=== PATIENT | female | born 1965 | race American Indian/Alaskan Native ===

== ENCOUNTER 2016-10-15 17:31 | Emergency (ER) | payer OTHER ==
--- NOTE | 2016-10-15 20:23 | Emergency Department Report ---
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 Patient states she went to dialysis Center on and was told hemoglobin count was low in the transfusion and was sent to go to the ER to be assessed. Patient states his last dialysis was Saturday and her next dialysis is tomorrow. Patient denies fever nausea vomiting chills, patient's of breath chest pain or any other problems. - ROS Review of Systems: As noted in HPI - Exam Vital Signs: Vital Signs 10/15/16 10/15/16 17:31 19:25 Temperature 98.9 F 98.3 F Pulse Rate 93 H 92 H Respiratory 16 18 Rate Blood Pressure 161/70 Blood Pressure 167/79 [Right] O2 Sat by Pulse 100 100 Oximetry Physical Exam: GENERAL: Alert and oriented x3, no apparent distress, Normal Gait, atraumatic. LUNGS: Symetrical with respiration, No wheezing, no rales or crackles, CTAB. HEART: S1, S2 present, regular rate and rhythm without murmur, no rubs, no gallops. ABDOMEN: No organomegaly was noted,Positive bowel sounds, soft, and non- distended. . Nontender to palpation on all Quadrants, NO CVA tenderness. MSE screening note: Focused history and physical exam performed. Due to findings the following was ordered: ED Medical Decision Making - Medical Decision Making Pulse rate 93 otherwise vital signs stable. Patient is alert and oriented 3 is in no respiratory distress. Patient to be seen by ED physician pending labs. ED Disposition for MSE Condition: Stable
[2016-10-15 21:43] LABS: Basophils % (Auto) 1.2 % (0.0-1.8); Hematocrit 21.7 % (30.3-42.9); Hemoglobin 7.3 gm/dl (10.1-14.3); Mean Corpuscular HGB Conc 34 % (30-34); Mean Corpuscular Hemoglobin 30 pg (28-32); Mean Corpuscular Volume 89 fl (79-97); Platelet Count 334 K/mm3 (140-440); Red Blood Count 2.43 M/mm3 (3.65-5.03); Red Cell Distribution Width 15.2 % (13.2-15.2); White Blood Count 9.3 K/mm3 (4.5-11.0)
[2016-10-15 22:05] LABS: Albumin 3.6 g/dL (3.9-5); Albumin/Globulin Ratio 1.1 %; Bilirubin,Total 0.2 mg/dL (0.1-1.2); Calcium 7.8 mg/dL (8.4-10.2); Total Protein 6.8 g/dL (6.3-8.2)
[2016-10-15 22:06] LABS: Chloride 97.9 mmol/L (98-107); Potassium 4.3 mmol/L (3.6-5.0)
[2016-10-16 00:54] VITALS: BP 189/85
--- NOTE | 2016-10-19 01:28 | ED Elopement Review ---
ED Pt Elopement review - Results review Lab results: Laboratory Tests 10/15/16 10/15/16 21:05 21:05 WBC 9.3 RBC 2.43 L Hgb 7.3 L Hct 21.7 L MCV 89 MCH 30 MCHC 34 RDW 15.2 Plt Count 334 Lymph % (Auto) 27.0 Reagan % (Auto) 7.6 H Eos % (Auto) 3.0 Baso % (Auto) 1.2 Lymph # 2.5 Reagan # 0.7 Eos # 0.3 Baso # 0.1 Seg Neutrophils % 61.2 Seg Neutrophils # 5.7 Sodium 140 Potassium 4.3 Chloride 97.9 L Carbon Dioxide 27 Anion Gap 19 BUN 32 H Creatinine 6.4 H Estimated GFR 8 BUN/Creatinine Ratio 5.00 Glucose 168 H Calcium 7.8 L Total Bilirubin 0.2 AST 29 ALT 13 Alkaline Phosphatase 59 Total Protein 6.8 Albumin 3.6 L Albumin/Globulin Ratio 1.1 - Call Back decision Pt Call Back Decision: Pt to F/U with PMD (hgb 7.3, if sx may return, may benefit from transfusion otherwise f/u closely with PMD for monitoring and treatment)
== END 2016-10-16 21:26 | disposition left against medical advice (07) ==
LOC: ED 17:31
DX: D64.9 Anemia, unspecified (principal); Z53.21 Procedure and treatment not carried out due to patient leaving prior to being seen by health care provider
CPT/HCPCS: 36415; 80053; 85025

== ENCOUNTER 2017-01-23 15:07 | Emergency (ER) | payer OTHER ==
[2017-01-23 17:36] LABS: Basophils % (Auto) 0.9 % (0.0-1.8); Eosinophils % (Auto) 1.5 % (0.0-4.3); Hematocrit 26.2 % (30.3-42.9); Hemoglobin 8.9 gm/dl (10.1-14.3); Mean Corpuscular HGB Conc 34 % (30-34); Mean Corpuscular Hemoglobin 31 pg (28-32); Mean Corpuscular Volume 91 fl (79-97); Platelet Count 295 K/mm3 (140-440); Red Blood Count 2.88 M/mm3 (3.65-5.03); Red Cell Distribution Width 16.5 % (13.2-15.2); White Blood Count 8.5 K/mm3 (4.5-11.0)
--- NOTE | 2017-01-23 17:38 | Emergency Department Report ---
- General Chief complaint: Dizziness Stated complaint: DIZZINESS Time Seen by Provider: 01/23/17 17:08 Source: patient, EMS Mode of arrival: Stretcher Limitations: No Limitations - History of Present Illness Initial comments: Patient is a 51-year-old female with a history of end-stage renal disease on dialysis MWF, hypertension, and diabetes presenting to the ER with weakness. She reports she went to go get dialyzed dialyzed today by Dr. Nunez and was sent to the ER for evaluation due to weakness. Dr. Nunez did not feel comfortable letting the patient today. Patient does have a left upper arm fistula, right chest port, and is now being evaluated for a PD catheter due to allergy to heparin. C dialysis on Saturday and was drawn off 3 L. Does still urinate 2-3 times a day. Otherwise no fevers, chills, nausea vomiting diarrhea , chest pain, shortness of breath, abdominal pain, trauma, or sick contacts. MD Complaint: generalized weakness Severity scale (0 -10): 0 - Related Data Home Medications Medication Instructions Recorded Confirmed Last Taken Calcitriol [Rocaltrol] 1 mcg PO QDAY 09/06/16 09/06/16 09/06/16 Sodium Bicarbonate 650 mg PO TID 09/06/16 09/06/16 09/06/16 Insulin Glargine,Hum.rec.anlog 6 units SQ DAILY 09/07/16 09/07/16 Unknown [Vasile Abad] Previous Rx's Medication Instructions Recorded Last Taken Type Docusate Sodium [Colace CAP] 100 mg PO BID PRN #30 capsule 11/11/14 Unknown Rx traMADol [Ultram 50 MG tab] 50 mg PO Q6HR PRN #14 tablet 11/11/14 Unknown Rx Calcium Carbonate [Tums] 1,000 mg PO BID #60 tablet 09/09/16 Unknown Rx Carvedilol [Coreg] 3.125 mg PO BID #60 tablet 09/09/16 Unknown Rx Cholecalciferol Vit D3 [Vitamin D3] 5,000 unit PO QDAY #30 tablet 09/09/16 Unknown Rx Fe Fumarate/FA/Mv, Min Comb#15 1 each PO QDAY #30 capsule 09/09/16 Unknown Rx [Hemocyte Plus] Losartan [Cozaar] 50 mg PO QDAY #30 tablet 09/09/16 Unknown Rx Allergies Allergy/AdvReac Type Severity Reaction Status Date / Time cashew nut Allergy Vomiting Verified 01/23/17 15:24 heparin Allergy Vomiting Verified 01/23/17 15:24 Iodinated Contrast Media - Allergy Anaphylaxis Verified 01/23/17 15:24 IV Dye pistachio nut Allergy Vomiting Verified 01/23/17 15:24 erythromycin base AdvReac SKIN Verified 01/23/17 15:24 IRRITATION Sulfa (Sulfonamide AdvReac SKIN Verified 01/23/17 15:24 Antibiotics) IRRITATION ED Review of Systems ROS: Stated complaint: DIZZINESS Other details as noted in HPI Comment: All other systems reviewed and negative ED Past Medical Hx - Past Medical History Hx Hypertension: Yes Hx Congestive Heart Failure: No Hx Diabetes: Yes Hx Asthma: No Hx COPD: No Additional medical history: CHRONIC BACK PAIN - Surgical History Additional Surgical History: RIGHT GREAT TOE AMPUTATED - Social History Smoking Status: Never Smoker Substance Use Type: None - Medications Home Medications: Home Medications Medication Instructions Recorded Confirmed Last Taken Type Docusate Sodium [Colace CAP] 100 mg PO BID PRN #30 capsule 11/11/14 Unknown Rx traMADol [Ultram 50 MG tab] 50 mg PO Q6HR PRN #14 tablet 11/11/14 Unknown Rx Calcitriol [Rocaltrol] 1 mcg PO QDAY 09/06/16 09/06/16 09/06/16 History Sodium Bicarbonate 650 mg PO TID 09/06/16 09/06/16 09/06/16 History Insulin Glargine,Hum.rec.anlog 6 units SQ DAILY 09/07/16 09/07/16 Unknown History [Toujeo Solostar] Calcium Carbonate [Tums] 1,000 mg PO BID #60 tablet 09/09/16 Unknown Rx Carvedilol [Coreg] 3.125 mg PO BID #60 tablet 09/09/16 Unknown Rx Cholecalciferol Vit D3 [Vitamin D3] 5,000 unit PO QDAY #30 tablet 09/09/16 Unknown Rx Fe Fumarate/FA/Mv, Min Comb#15 1 each PO QDAY #30 capsule 09/09/16 Unknown Rx [Hemocyte Plus] Losartan [Cozaar] 50 mg PO QDAY #30 tablet 09/09/16 Unknown Rx ED Physical Exam - General Limitations: No Limitations General appearance: alert, in no apparent distress - Head Head exam: Present: atraumatic, normocephalic - Eye Eye exam: Present: normal appearance - ENT ENT exam: Present: mucous membranes moist - Neck Neck exam: Present: normal inspection - Respiratory Respiratory exam: Present: normal lung sounds bilaterally. Absent: respiratory distress - Cardiovascular Cardiovascular Exam: Present: regular rate, normal rhythm, other (LUE fistual with palpable thrill, R chest shiley). Absent: systolic murmur, diastolic murmur, rubs, gallop - GI/Abdominal GI/Abdominal exam: Present: soft, normal bowel sounds - Extremities Exam Extremities exam: Present: normal inspection - Back Exam Back exam: Present: normal inspection - Neurological Exam Neurological exam: Present: alert, oriented X3 - Psychiatric Psychiatric exam: Present: normal affect, normal mood - Skin Skin exam: Present: warm, dry, intact, normal color. Absent: rash ED Course Vital Signs 01/23/17 15:18 Temperature 97.5 F L Pulse Rate 81 Respiratory 18 Rate Blood Pressure 147/66 Blood Pressure 147/66 [Right] O2 Sat by Pulse 98 Oximetry ED Medical Decision Making - Lab Data Result diagrams: 01/23/17 15:28 01/23/17 15:28 - EKG Data -: EKG Interpreted by Me ([id number]) EKG shows normal: sinus rhythm, axis (normal), intervals (QTc:497ms), ST-T waves ((-)ST changes, no STEMI) Rate: normal (79 bpm) - Radiology Data Radiology results: image reviewed CXR: no acute findings, catheter in R chest as visualized by me - Medical Decision Making Case discussed with Dr Cloud, covering for Dr Nunez, he did relay the information to Dr Nunez to call me here at [facility]. I still have not spoken to Dr Nunez, called out to Dr Cloud again, I did discuss the patient's bloodwork and reason why she was here, at this time there is no reason to admit the patient, she has normal vitals, K is 4.8, Creat is 6.8 , patient can have dialysis tomorrow. Discussed plan with patient and she is agreeable. I instructed her to return if she has any new sx besides weakness, and to return if Dr Nunez instructs her to , she understood Critical care attestation.: If time is entered above; I have spent that time in minutes in the direct care of this critically ill patient, excluding procedure time. ED Disposition Clinical Impression: Weakness, CKD (chronic kidney disease) Disposition: DISCHARGED TO HOME OR SELFCARE Is pt being admited?: No Condition: Stable Instructions: Weakness (ED), Chronic Kidney Disease (ED) Referrals: PRIMARY CARE, [Primary Care Provider] - 3-5 Days
[2017-01-23 17:46] LABS: INR 1.09 (0.87-1.13); Partial Thromboplastin Time 30.9 Sec. (24.2-36.6)
[2017-01-23 18:02] LABS: Magnesium 1.9 mg/dL (1.7-2.3); Phosphorous 5.4 mg/dL (2.5-4.5)
[2017-01-23 18:04] LABS: Albumin 3.8 g/dL (3.9-5); Albumin/Globulin Ratio 1.1 %; BUN/Creatinine Ratio 7.2; Bilirubin,Total 0.2 mg/dL (0.1-1.2); Calcium 6.9 mg/dL (8.4-10.2); Chloride 90.6 mmol/L (98-107); Total Protein 7.3 g/dL (6.3-8.2)
[2017-01-23 18:07] LABS: Potassium 4.8 mmol/L (3.6-5.0)
--- NOTE | 2017-01-23 18:09 | Admit Criteria Form ---
Admission Criteria Documentation: RENAL FAILURE, CHRONIC Clinical Indications for Admission to Inpatient Care (Place 'X' for any and all applicable criteria): Admission is indicated for ANY ONE of the following (1)(2)(3)(4)(5): [X ]I. Inpatient admission required rather than observation care (Use Renal Failure, Chronic: Observation Care Criteria as appropriate) because of ANY ONE of the following: [X ]a) Volume overload or uremic symptoms (eg, clinically significant pulmonary edema, hypertension, pericarditis, acidosis) too severe for, or not responsive (eg, for over 24 hours) to emergency department or observation care dialysis or treatment regimen (11) [ ]b) Hemodynamic instability that is severe or persistent [ ]c) Respiratory distress that is severe or persistent (11) [ ]d) Clinically significant electrolyte abnormality that requires inpatient care (eg,hyperkalemia with severe ECG findings)[B] [ ]e) Supplement O2 or respiratory therapy for over 24hrs that is performable only in acute inpatient setting [ ]f) Continuous IV infusion of anticoagulation, platelet inhibitor, vasoactive, or Antiarrhythmic medication (15), [ ]g) Pulmonary artery catheter monitoring [ ]h) Temporary pacemaker placement [ ]i) Emergent pericardiocentesis [ ]j) Other condition, treatment or monitoring requiring inpatient admission [ ]II. Unexplained syncope [A] [ ]III. Recurrent seizures [ ]IV. Severe infections not treatable in outpatient setting (eg, peritonitis)(9 ) [ ]V. Cardiac arrhythmias of immediate concern [ ]. Encephalopathy [ ]VII.Bleeding abnormalities (eg, platelet dysfunction) with active (eg, gastrointestinal) bleeding Extended stay beyond goal length of stay may be needed for (3)(4)(35)(36): [ ]a) Continuing uremic complications [ ]b) Comorbidities or complications The original [employer] content created by [employer] has been revised. The portions of the content which have been revised are identified through the use of italic text or in bold, and [email or web address] has neither reviewed nor approved the modified material. All other unmodified content is copyright [employer]. Please see references footnoted in the original [employer] edition 2016
[2017-01-23 18:56] LABS: Bilirubin,Urine NEG (Negative); Blood,Urine NEG (Negative); Ketones,Urine NEG (Negative); Leukocyte Esterase,Urine NEG (Negative); Nitrite,Urine NEG (Negative); Urobilinogen,Urine < 2.0 mg/dL (<2.0)
[2017-01-23 21:23] VITALS: BP 132/70
--- NOTE | 2017-01-24 08:30 | XRay Report ---
CHEST TWO VIEWS: 01/23/17 15:07:00 CLINICAL: Shortness of breath. COMPARISON: 09/07/16 FINDINGS: Borderline cardiomegaly. Normal pulmonary vessels. The lungs are normally expanded and clear. A Vas-Cath tip is in the right atrium.Spondylosis of the thoracic spine. IMPRESSION: Borderline cardiomegaly but no CHF.No pneumonia.
== END 2017-01-23 21:24 | disposition home or self-care (01) ==
LOC: ED 15:07
DX: R53.1 Weakness (principal); I12.0 Hypertensive chronic kidney disease with stage 5 chronic kidney disease or end stage renal disease; N18.6 End stage renal disease; E11.9 Type 2 diabetes mellitus without complications; G89.29 Other chronic pain; Z91.010 Allergy to peanuts; Z88.2 Allergy status to sulfonamides; Z88.8 Allergy status to other drugs, medicaments and biological substances; Z91.018 Allergy to other foods
CPT/HCPCS: 36415; 71020; 80053; 80061; 81001; 82140; 83735; 83880; 84100; 84484; 85025; 85610; 85730; 93005; 93010